=== PATIENT | male | born 1955 | race Caucasian/White ===

== ENCOUNTER → 2022-06-01 | Outpatient (CLI) | payer MEDICARE ==
[~2022-06-01] MED LIST: DAYPRO600 M1 PO
== END | disposition home or self-care (01) ==
LOC: US 10:30
PROVIDERS: ATTEND Orthopaedic Surgery
DX: R22.43 Localized swelling, mass and lump, lower limb, bilateral (principal)

== ENCOUNTER → 2022-06-06 | Outpatient (CLI) | payer MEDICARE | END | disposition home or self-care (01) | LOC: RESCLI 01:57 | PROVIDERS: ATTEND Student in an Organized Health Care Education/Training Program | DX: I10 Essential (primary) hypertension (principal); I82.503 Chronic embolism and thrombosis of unspecified deep veins of lower extremity, bilateral; E78.2 Mixed hyperlipidemia; F10.90 Alcohol use, unspecified, uncomplicated; Z98.890 Other specified postprocedural states; Z79.899 Other long term (current) drug therapy ==

== ENCOUNTER → 2023-06-06 | Outpatient (CLI) | payer MEDICARE | END | disposition home or self-care (01) | LOC: RESCLI 01:31 | PROVIDERS: ATTEND Student in an Organized Health Care Education/Training Program | DX: I82.419 Acute embolism and thrombosis of unspecified femoral vein (principal); I10 Essential (primary) hypertension; T78.40XA Allergy, unspecified, initial encounter; E78.5 Hyperlipidemia, unspecified; M19.90 Unspecified osteoarthritis, unspecified site; Z98.890 Other specified postprocedural states; Z88.8 Allergy status to other drugs, medicaments and biological substances; Z79.899 Other long term (current) drug therapy; X58.XXXA Exposure to other specified factors, initial encounter ==